=== PATIENT | male | born 1985 | race Caucasian/White ===

== ENCOUNTER 2016-06-01 21:39 | Emergency (ER) | payer SELFPAY ==
[~2016-06-01] VITALS: Ht 177.8 cm; Wt 138.3 kg
[2016-06-02] MEDS ORDERED: PSEUDOEPHEDRINE HCL 30 MG TABLET PO ONE
[2016-06-02] MEDS ORDERED: ASPIRIN 81 MG TAB.CHEW PO ONE
[2016-06-02] MEDS ORDERED: ONDANSETRON HCL/PF 4 MG/2 ML VIAL IVP ONE
[2016-06-02] MEDS ORDERED: HYDROMORPHONE INJ 2 MG/ML DISP.SYRIN IV ONE
[2016-06-02] MEDS ORDERED: NITROGLYCERIN PACKET 1 GM PACKET TD ONE
[2016-06-02] MEDS ORDERED: HYDROMORPHONE INJ 2 MG/ML DISP.SYRIN ONE (00:01)
[2016-06-02] MEDS ORDERED: PSEUDOEPHEDRINE HCL 30 MG TABLET ONE (00:02)
[2016-06-02] MEDS ORDERED: ONDANSETRON HCL/PF 4 MG/2 ML VIAL ONE (00:02)
[2016-06-02] MEDS ORDERED: NITROGLYCERIN PACKET 1 GM PACKET ONE (00:02)
[2016-06-02] MEDS ORDERED: ASPIRIN EC 81 MG TABLET.DR PO ONE (00:02)
[2016-06-02 00:22] LABS: BASOPHILS # (AUTO) 0.1 /CMM (0.0-0.2); BASOPHILS % (AUTO) 0.5 % (0.0-2.0); DIFF TOTAL % 100 %; EOSINOPHILS # (AUTO) 0.2 /CMM (0.0-0.7); EOSINOPHILS % (AUTO) 2.2 % (0.0-6.0); HEMATOCRIT 44 % (39-51); HEMOGLOBIN 14.8 g/dL (13.5-17.5); LYMPHOCYTES % (AUTO) 36.5 % (20.0-44.0); MEAN CORPUSCULAR HEMOGLOBIN 28 PG (26.0-33.0); MEAN CORPUSCULAR HGB CONC 34 g/dl (31.0-36.0); MEAN CORPUSCULAR VOLUME 85 fL (80-96); MONOCYTES # (AUTO) 0.9 /CMM (0.1-1.30); NEUTROPHILS # (AUTO) 5.8 /CMM (1.8-8.9); NEUTROPHILS % (AUTO) 52.8 % (43.0-81.0); PLATELET COUNT (AUTO) 247 /CMM (150-450); RED BLOOD CELL COUNT(AUTO) 5.23 MIL/uL (4.5-6.0); WHITE BLOOD COUNT (AUTO) 10.9 K/uL (4.3-11.0)
[2016-06-02 00:33] LABS: ANION GAP 9 (5-14); CARBON DIOXIDE 30 mmol/L (21-32); CHLORIDE 103 mmol/L (98-107); CREATININE 0.7 mg/dL (0.6-1.3); GFR 131 mL/min (>60); GLUCOSE 102 mg/dL (74-106); SODIUM SERUM 138 mmol/L (136-145); UREA NITROGEN, BLOOD 15 mg/dL (7-18)
[2016-06-02 00:41] LABS: TROPONIN I < 0.017 ng/mL (0.00-0.056)
[2016-06-02 00:47] LABS: ALANINE AMINOTRANSFERASE 42 U/L (12-78); ALBUMIN 3.7 g/dL (3.4-5.0); ASPARTATE AMINOTRANSFERASE 23 U/L (15-37); BILIRUBIN,TOTAL 0.2 mg/dL (0.2-1.0); INDIRECT BILIRUBIN 0.2 mg/dL (0.0-1.1); TOTAL PROTEIN, SERUM 7.9 g/dL (6.4-8.2)
[2016-06-02 00:55] LABS: INR 0.93 (0.87-1.13)
[2016-06-02] MEDS ORDERED: ONDANSETRON 4 MG TAB.RAPDIS ONE (03:12)
[2016-06-02] MEDS ORDERED: HYDROCODONE/APAP 10/325MG 1 EA TABLET ONE (03:13)
[2016-06-02] MEDS ORDERED: ONDANSETRON 4 MG TAB.RAPDIS SL ONE (03:30)
[2016-06-02] MEDS ORDERED: HYDROCODONE/APAP 10/325MG 1 EA TABLET PO ONE (03:30)
[2016-06-02 04:27] VITALS: BP 145/95
== END 2016-06-02 04:27 | disposition home or self-care (01) ==
LOC: ER 21:42
DX: R07.89 Other chest pain (principal); H65.01 Acute serous otitis media, right ear; E66.9 Obesity, unspecified; Z88.8 Allergy status to other drugs, medicaments and biological substances
CPT/HCPCS: 36415; 71010; 80048; 80076; 83690; 83880; 84484 ×2; 85025; 85730; 93005; 96374; 96375; 99285; A4606; J1170; J2405; Q0162; Z7610